=== PATIENT | male | born 1980 | race Caucasian/White ===

== ENCOUNTER 2017-04-19 15:41 | Emergency (ER) | payer OTHER ==
[2017-04-19 18:31] LABS: UA SPECIFIC GRAVITY >=1.030 (1.005-1.035); microscopic required? YES; urine erythrocyte TRACE (NEGATIVE)
[2017-04-19 18:35] LABS: BASOPHIL % 0.5 % (0-2); PLATELET COUNT 296 x10^3mcL (130-400); RED CELL DISTRIBUTION WIDTH 12.8 % (11.5-14.5)
[2017-04-19 18:39] LABS: CALCIUM 9.4 mg/dL (8.5-10.1); CARBON DIOXIDE 27.7 mmol/L (21-32); CHLORIDE SERUM 104 mmol/L (98-107); CREATININE SERUM 1.2 mg/dL (0.7-1.3); GFR1 > 60 mL/min; GLUCOSE SERUM 88 mg/dL (74-106); POTASSIUM SERUM 4.2 mmol/L (3.5-5.1); SODIUM SERUM 140 mmol/L (136-145)
[2017-04-19 18:40] LABS: AMPHETAMINE QUAL UR NONE DETECTED (NEG <=1000)
[2017-04-19 18:50] LABS: ALBUMIN 4.5 g/dL (3.4-5.0); ALKALINE PHOSPHATASE 104 U/L (46-116); ALT/SGPT 25 U/L (16-63); AMYLASE 70 U/L (25-115); AST/SGOT 20 U/L (15-37); BILIRUBIN TOTAL 1.6 mg/dL (0.20-1.00); HDL CHOLESTEROL 49 mg/dL (40-60); LIPASE 168 IU/L (73-393); T4(THYROXINE) 6.5 ug/dL (4.7-13.3)
[2017-04-19 18:51] LABS: CHOLESTEROL 213 mg/dL (<200); TOTAL PROTEIN, SERUM 8.4 g/dL (6.4-8.2)
[2017-04-19 21:45] VITALS: BP 91/46
== END 2017-04-19 21:45 | disposition home or self-care (01) ==
LOC: ED 15:41
PROVIDERS: Emergency Medicine
DX: R53.83 Other fatigue (principal); I10 Essential (primary) hypertension; E78.00 Pure hypercholesterolemia, unspecified
CPT/HCPCS: 83880; J7030

== ENCOUNTER 2017-07-12 19:11 | Emergency (ER) | payer OTHER ==
[2017-07-12 20:31] VITALS: BP 136/82
== END 2017-07-12 20:31 | disposition home or self-care (01) ==
LOC: ED 19:11
DX: L72.3 Sebaceous cyst (principal); L03.312 Cellulitis of back [any part except buttock and flank]

== ENCOUNTER 2017-08-23 08:53 | Emergency (ER) | payer OTHER ==
[2017-08-23 09:50] VITALS: BP 141/82
== END 2017-08-23 09:50 | disposition home or self-care (01) ==
LOC: ED 08:53
DX: S63.502A Unspecified sprain of left wrist, initial encounter (principal); W01.0XXA Fall on same level from slipping, tripping and stumbling without subsequent striking against object, initial encounter; Y93.89 Activity, other specified; Y92.89 Other specified places as the place of occurrence of the external cause; Y99.8 Other external cause status

== ENCOUNTER 2017-09-13 08:54 | Emergency (ER) | payer OTHER ==
[~2017-09-13] VITALS: Ht 172.7 cm; Wt 79.0 kg
[2017-09-13 09:10] VITALS: Ht 172.7 cm; Wt 79.0 kg
[2017-09-13 11:32] VITALS: BP 139/92
== END 2017-09-13 11:30 | disposition home or self-care (01) ==
LOC: ED 08:54
DX: M62.830 Muscle spasm of back (principal); R03.0 Elevated blood-pressure reading, without diagnosis of hypertension
CPT/HCPCS: 20552; J1885; J2001

== ENCOUNTER 2018-05-23 15:57 | Emergency (ER) | payer OTHER ==
[~2018-05-23] VITALS: Ht 170.2 cm; Wt 79.1 kg
[2018-05-23 17:39] LABS: microscopic required? YES; urine erythrocyte NEGATIVE (NEGATIVE)
[2018-05-23 17:45] LABS: BASOPHIL % 0.3 % (0-2); PLATELET COUNT 283 x10^3mcL (130-400); RED CELL DISTRIBUTION WIDTH 12.7 % (11.5-14.5)
[2018-05-23 17:56] LABS: CALCIUM 9.1 mg/dL (8.5-10.1); CARBON DIOXIDE 30.5 mmol/L (21-32); CHLORIDE SERUM 103 mmol/L (98-107); GFR1 > 60 mL/min; GLUCOSE SERUM 99 mg/dL (74-106); POTASSIUM SERUM 3.8 mmol/L (3.5-5.1); SODIUM SERUM 140 mmol/L (136-145)
[2018-05-23 18:00] LABS: ALBUMIN 4.1 g/dL (3.4-5.0); ALKALINE PHOSPHATASE 90 U/L (46-116); ALT/SGPT 43 U/L (16-63); AST/SGOT 21 U/L (15-37); BILIRUBIN TOTAL 1.4 mg/dL (0.20-1.00); TOTAL PROTEIN, SERUM 7.9 g/dL (6.4-8.2)
[2018-05-23 19:34] VITALS: BP 124/75
== END 2018-05-23 19:34 | disposition home or self-care (01) ==
LOC: ED 15:57
PROVIDERS: Emergency Medicine
DX: N48.89 Other specified disorders of penis (principal); R10.31 Right lower quadrant pain; R50.9 Fever, unspecified; R11.0 Nausea
CPT/HCPCS: 87491; 87591; J0696; J1885; J2405; J3490

== ENCOUNTER 2019-10-14 12:40 | Emergency (ER) | payer OTHER ==
[~2019-10-14] VITALS: Ht 170.2 cm; Wt 75.3 kg
[2019-10-14 13:05] VITALS: BP 122/85; Ht 170.2 cm; Wt 75.3 kg
== END 2019-10-14 15:20 | disposition home or self-care (01) ==
LOC: ED 12:40
DX: J11.1 Influenza due to unidentified influenza virus with other respiratory manifestations (principal)
CPT/HCPCS: 87804; J7030